=== PATIENT | male | born 1980 | race Caucasian/White ===

== ENCOUNTER 2021-11-14 20:42 | Emergency (ER) | payer MEDICAID ==
[~2021-11-14] VITALS: Ht 180.3 cm; Wt 115.7 kg
[2021-11-14 20:55] VITALS: BP_SYST 119
[2021-11-14] MEDS ORDERED: PANTOPRAZOLE SODIUM 40 MG/VIAL (PROTONIX) IVP ONE (21:45)
[2021-11-14] MEDS ORDERED: ONDANSETRON HCL 4 MG/2 ML VIAL IVP ONE (21:45)
[2021-11-14] MEDS ORDERED: NACL 0.9% 1,000 ML IV ONE (21:45)
[2021-11-14 22:50] LABS: BASOPHILS # (AUTO) 0.1 K/uL (0.0-0.2); BASOPHILS % (AUTO) 0.6 % (0.0-2.0); EOSINOPHILS % (AUTO) 0.5 % (0.0-4.0); HEMOGLOBIN 9.7 g/dL (14.0-18.0); LYMPHOCYTES # (AUTO) 1.9 K/uL (1.0-5.5); LYMPHOCYTES % (AUTO) 21.2 % (20.5-51.5); MEAN CORPUSCULAR HEMOGLOBIN 21 pg (27-31); MEAN CORPUSCULAR HGB CONC 30 % (32-36); MEAN CORPUSCULAR VOLUME 69 fL (79.0-98.0); MONOCYTES # (AUTO) 0.6 K/uL (0.0-1.0); MONOCYTES % (AUTO) 6.8 % (1.7-9.3); NEUTROPHILS # (AUTO) 6.4 K/uL (1.8-7.7); NEUTROPHILS % (AUTO) 70.9 % (40.0-70.0); PLATELET COUNT (AUTO) 429 K/uL (130-430); RED BLOOD CELL COUNT(AUTO) 4.62 MIL/uL (4.2-6.2); RED CELL DISTRIBUTION WIDTH 19.5 % (9.0-15.0); WHITE BLOOD COUNT (AUTO) 9.1 K/uL (4.8-10.8)
[2021-11-14 23:08] LABS: CREATININE 1.25 mg/dL (0.55-1.30); POTASSIUM 3.8 mmol/L (3.5-5.1)
[2021-11-14 23:15] LABS: ALBUMIN 3.8 g/dL (3.4-4.8); TOTAL BILIRUBIN 0.5 mg/dL (0.0-1.0)
[2021-11-15] MEDS ORDERED: ONDA-8 TL (00:43)
[2021-11-15 01:04] VITALS: BP_SYST 137
== END 2021-11-15 01:04 | disposition home or self-care (01) ==
LOC: SED 20:42
DX: R11.10 Vomiting, unspecified (principal); R42 Dizziness and giddiness; F12.90 Cannabis use, unspecified, uncomplicated; Z88.8 Allergy status to other drugs, medicaments and biological substances
CPT/HCPCS: 36415; 80053; 83690; 85025; 96361; 96374; 96375; 99285; C9113; J2405; J7030

== ENCOUNTER 2021-12-12 05:46 | Inpatient (IN) | payer MEDICAID, SELFPAY ==
[~2021-12-12] VITALS: Ht 180.3 cm; Wt 108.9 kg
[~2021-12-12 05:46] MED LIST: ONDA-8 TL
[2021-12-12 06:01] VITALS: BP_SYST 136
[2021-12-12] MEDS ORDERED: NACL 0.9% 1,000 ML IV ONE (06:45)
[2021-12-12] MEDS ORDERED: MORPHINE 4 MG INJ. 4 MG/ML VIAL IVP ONE (06:45)
[2021-12-12] MEDS ORDERED: DIPHENHYDRAMINE INJ 50 MG/ML VIAL IVP ONE (06:45)
[2021-12-12 07:05] LABS: BILIRUBIN,URINE NEGATIVE (NEGATIVE); BLOOD, URINE NEGATIVE (NEGATIVE); CLARITY/URINE CLEAR (CLEAR); COLOR,URINE YELLOW (YELLOW); GLUCOSE,URINE NEGATIVE (NEGATIVE); KETONES,URINE NEGATIVE (NEGATIVE); LEUKOCYTE ESTERASE ,URINE NEGATIVE (NEGATIVE); NITRITE, URINE NEGATIVE (NEGATIVE); PH,URINE 8.5 (5.0-8.0); PROTEIN URINE TRACE (NEGATIVE); UROBILINOGEN,URINE 0.2 (0.2-1.0)
[2021-12-12 07:17] LABS: BASOPHILS # (AUTO) 0.1 K/uL (0.0-0.2); BASOPHILS % (AUTO) 0.7 % (0.0-2.0); EOSINOPHILS # (AUTO) 0.1 K/uL (0.0-0.4); EOSINOPHILS % (AUTO) 1.2 % (0.0-4.0); HEMATOCRIT 30.8 % (36-54); HEMOGLOBIN 9.4 g/dL (14.0-18.0); LYMPHOCYTES # (AUTO) 4.4 K/uL (1.0-5.5); LYMPHOCYTES % (AUTO) 41.6 % (20.5-51.5); MEAN CORPUSCULAR HEMOGLOBIN 21 pg (27-31); MEAN CORPUSCULAR HGB CONC 30 % (32-36); MEAN CORPUSCULAR VOLUME 69 fL (79.0-98.0); MONOCYTES # (AUTO) 0.4 K/uL (0.0-1.0); MONOCYTES % (AUTO) 3.6 % (1.7-9.3); NEUTROPHILS # (AUTO) 5.6 K/uL (1.8-7.7); NEUTROPHILS % (AUTO) 52.9 % (40.0-70.0); PLATELET COUNT (AUTO) 512 K/uL (130-430); RED BLOOD CELL COUNT(AUTO) 4.45 MIL/uL (4.2-6.2); RED CELL DISTRIBUTION WIDTH 20.5 % (9.0-15.0); WHITE BLOOD COUNT (AUTO) 10.6 K/uL (4.8-10.8)
[2021-12-12 07:51] LABS: CALCIUM 8.4 mg/dL (8.4-11.0); CREATININE 1.4 mg/dL (0.55-1.30); POTASSIUM 3.7 mmol/L (3.5-5.1)
[2021-12-12 07:56] LABS: ALBUMIN 3.6 g/dL (3.4-4.8); TOTAL BILIRUBIN 0.3 mg/dL (0.0-1.0)
[2021-12-12] MEDS ORDERED: fentaNYL CITRATE/PF 100 MCG/2 ML AMP IVP ONE (09:00)
[2021-12-12 11:38] LABS: BARBITURATE, URINE NEGATIVE (NEG <=200); BENZODIAZEPINE, URINE NEGATIVE (NEG <=150); METHAMPHETAMINES SCREEN,URINE NEGATIVE (NEG <=500); URINE AMPHETAMINE NEGATIVE (NEG <=500); URINE METHADONE NEGATIVE (NEG <=200)
[2021-12-12 11:39] LABS: CANNABINOID, URINE POSITIVE (NEG <=50); COCAINE, URINE POSITIVE (NEG <=150); OPIATE, URINE POSITIVE (NEG <=100); PHENCYCLIDINE SCREEN,URINE NEGATIVE (NEG <=25); UR TRICYCLIC ANTIDEPRESSANTS NEGATIVE (NEG <=300); URINE OXYCODONE SCREEN NEGATIVE (NEG <=100); URINE PROPOXYPHENE SCREEN NEGATIVE (NEG <=300)
[2021-12-12 12:55] VITALS: BP_SYST 136
[2021-12-12] MEDS ORDERED: NALOXONE HCL 0.4 MG/ML AMP (NARCAN) IVP PRN ×3 (13:15→14:15)
[2021-12-12] MEDS ORDERED: HYDROmorphone 1 MG/ML INJ. CARTRIDGE IVP ONE (13:15)
[2021-12-12 13:44] VITALS: BP_SYST 136
[2021-12-12] MEDS ORDERED: MILK OF MAGNESIA 30 ML UDC PO PRN (14:00)
[2021-12-12] MEDS ORDERED: FOLIC ACID 1 MG, THIAMINE HCL 100 MG, MAGNESIUM SULFATE 1 GM, MVI 10 ML in NACL 0.9% 1,... IV SCH (14:00)
[2021-12-12] MEDS ORDERED: MAG-AL HYDROX/SIMETH 30 ML UDC PO ONE (14:00)
[2021-12-12] MEDS ORDERED: MAG-AL HYDROX/SIMETH 30 ML UDC PO PRN (14:00)
[2021-12-12] MEDS ORDERED: MILK OF MAGNESIA 30 ML UDC PO ONE (14:00)
[2021-12-12] MEDS ORDERED: ACETAMINOPHEN 325 MG TABLET PO PRN (14:15)
[2021-12-12] MEDS ORDERED: FAMOTIDINE 20 MG TABLET PO ONE (14:15)
[2021-12-12] MEDS ORDERED: HYDROmorphone 1 MG/ML INJ. CARTRIDGE IVP PRN (14:15)
[2021-12-12] MEDS ORDERED: BISACODYL 5 MG TABLET.DR (DULCOLAX) PO ONE (14:15)
[2021-12-12] MEDS ORDERED: chlordiazePOXIDE HCL 25 MG CAPSULE PO ONE (14:30)
[2021-12-12] MEDS ORDERED: LORazepam 2 MG/ML VIAL IVP PRN (14:30)
[2021-12-12] MEDS ORDERED: LACTOBACILLUS RHAMNOSUS GG 1 CAP CAPSULE PO ONE (14:45)
[2021-12-12] MEDS ORDERED: PIPERACILLIN/TAZO 3.375/DEX-IS 50 ML IV ONE (16:00)
[2021-12-12] MEDS: THIAMINE HCL 100 MG, MAGNESIUM SULFATE 1 GM in NS 100 ML IV SCH (16:43)
[2021-12-12] MEDS: LACTOBACILLUS RHAMNOSUS GG 1 CAP CAPSULE PO SCH ×2 (16:45→21:59)
[2021-12-12] MEDS: FOLIC ACID 1 MG, MVI 10 ML in NACL 0.9% 1,000 ML IV SCH (16:47)
[2021-12-12 17:47] VITALS: BP_SYST 132
[2021-12-12] MEDS: HYDROmorphone 1 MG/ML INJ. CARTRIDGE IVP PRN ×2 (19:29→23:52)
[2021-12-12] MEDS ORDERED: chlordiazePOXIDE HCL 25 MG CAPSULE PO SCH (21:00)
[2021-12-12] MEDS: FAMOTIDINE PF 20 MG/2 ML VIAL IVP SCH (22:00)
[2021-12-12 23:35] VITALS: BP_SYST 133
[2021-12-12] MEDS: PIPERACILLIN/TAZO 3.375/DEX-IS 50 ML IV SCH (23:53)
[2021-12-13 03:15] VITALS: BP_SYST 134
[2021-12-13] MEDS: HYDROmorphone 1 MG/ML INJ. CARTRIDGE IVP PRN ×5 (05:45→23:46)
[2021-12-13] MEDS: PIPERACILLIN/TAZO 3.375/DEX-IS 50 ML IV SCH ×4 (05:52→23:47)
[2021-12-13 07:14] LABS: ALBUMIN 2.8 g/dL (3.4-4.8); CALCIUM 8.3 mg/dL (8.4-11.0); CREATININE 1.26 mg/dL (0.55-1.30); POTASSIUM 3.9 mmol/L (3.5-5.1); TOTAL BILIRUBIN 0.4 mg/dL (0.0-1.0)
[2021-12-13 07:29] LABS: HEMATOCRIT 28.4 % (36-54); HEMOGLOBIN 8.5 g/dL (14.0-18.0); MEAN CORPUSCULAR HEMOGLOBIN 21 pg (27-31); MEAN CORPUSCULAR HGB CONC 30 % (32-36); MEAN CORPUSCULAR VOLUME 70 fL (79.0-98.0); PLATELET COUNT (AUTO) 472 K/uL (130-430); RED BLOOD CELL COUNT(AUTO) 4.09 MIL/uL (4.2-6.2); RED CELL DISTRIBUTION WIDTH 20.4 % (9.0-15.0)
[2021-12-13] MEDS ORDERED: OLANZapine 5 MG TABLET PO PRN (07:45)
[2021-12-13 08:00] VITALS: BP_SYST 111
[2021-12-13] MEDS ORDERED: THIAMINE HCL 100 MG TABLET PO SCH (09:00)
[2021-12-13] MEDS ORDERED: FOLIC ACID 1 MG TABLET PO SCH (09:00)
[2021-12-13] MEDS: FAMOTIDINE PF 20 MG/2 ML VIAL IVP SCH ×2 (09:22→20:57)
[2021-12-13] MEDS: LACTOBACILLUS RHAMNOSUS GG 1 CAP CAPSULE PO SCH ×2 (09:22→20:56)
[2021-12-13 09:29] LABS: BASOPHILS % (MANUAL) 0 % (0-2); EOSINOPHILS % (MANUAL) 6 % (0-7); LYMPHOCYTES % (MANUAL) 26 % (20-46); MONOCYTES % (MANUAL) 8 % (0-11)
[2021-12-13 12:42] VITALS: BP_SYST 117
[2021-12-13 14:21] LABS: TOTAL IRON BIND. CAPACITY 454 ug/dL (250-450)
[2021-12-13] MEDS: THIAMINE HCL 100 MG, MAGNESIUM SULFATE 1 GM in NS 100 ML IV SCH (14:30)
[2021-12-13] MEDS: FOLIC ACID 1 MG, MVI 10 ML in NACL 0.9% 1,000 ML IV SCH (14:30)
[2021-12-13] MEDS ORDERED: BISACODYL 5 MG TABLET.DR (DULCOLAX) PO ONE (17:00)
[2021-12-13] MEDS ORDERED: GOLYTELY / COLYTE SOLUTION 4 LITERS PO ONE (18:00)
[2021-12-13] MEDS: SOD FERRIC GLUC COMPLEX/SUC 125 MG in NS 100 ML IV SCH (18:45)
[2021-12-13 20:01] VITALS: BP_SYST 129
[2021-12-13] MEDS: MULTIVITS,CA,MINERALS/IRON/FA 1 TABLET PO SCH (20:57)
[2021-12-14 00:37] VITALS: BP_SYST 115
[2021-12-14] MEDS: HYDROmorphone 1 MG/ML INJ. CARTRIDGE IVP PRN ×4 (04:09→21:02)
[2021-12-14] MEDS: PIPERACILLIN/TAZO 3.375/DEX-IS 50 ML IV SCH ×3 (06:04→17:49)
[2021-12-14 07:30] LABS: CALCIUM 8.2 mg/dL (8.4-11.0); CREATININE 1.25 mg/dL (0.55-1.30); POTASSIUM 3.8 mmol/L (3.5-5.1)
[2021-12-14 07:39] LABS: PROTHROMBIN TIME 10.4 SECS (9.5-12.5)
[2021-12-14 08:15] VITALS: BP_SYST 114
[2021-12-14 08:44] LABS: HEMATOCRIT 27.1 % (36-54); HEMOGLOBIN 8.1 g/dL (14.0-18.0); MEAN CORPUSCULAR HEMOGLOBIN 21 pg (27-31); MEAN CORPUSCULAR HGB CONC 30 % (32-36); MEAN CORPUSCULAR VOLUME 70 fL (79.0-98.0); PLATELET COUNT (AUTO) 480 K/uL (130-430); RED CELL DISTRIBUTION WIDTH 20.2 % (9.0-15.0); WHITE BLOOD COUNT (AUTO) 6.7 K/uL (4.8-10.8)
[2021-12-14] MEDS: FAMOTIDINE PF 20 MG/2 ML VIAL IVP SCH ×2 (09:39→21:00)
[2021-12-14] MEDS: fentaNYL CITRATE/PF 100 MCG/2 ML AMP ONE ×2 (11:01→11:07)
[2021-12-14] MEDS: MIDAZOLAM HCL 5 MG/5 ML VIAL ONE ×7 (11:01→11:14)
[2021-12-14 11:51] LABS: BASOPHILS % (MANUAL) 0 % (0-2); EOSINOPHILS % (MANUAL) 2 % (0-7); LYMPHOCYTES % (MANUAL) 30 % (20-46); MONOCYTES % (MANUAL) 12 % (0-11)
[2021-12-14 12:04] VITALS: BP_SYST 123
[2021-12-14] MEDS: MULTIVITS,CA,MINERALS/IRON/FA 1 TABLET PO SCH ×2 (13:15→21:00)
[2021-12-14] MEDS: LACTOBACILLUS RHAMNOSUS GG 1 CAP CAPSULE PO SCH ×2 (13:15→21:00)
[2021-12-14] MEDS: THIAMINE HCL 100 MG, MAGNESIUM SULFATE 1 GM in NS 100 ML IV SCH (14:54)
[2021-12-14] MEDS: FOLIC ACID 1 MG, MVI 10 ML in NACL 0.9% 1,000 ML IV SCH (14:55)
[2021-12-14 17:42] VITALS: BP_SYST 122
[2021-12-14] MEDS: SOD FERRIC GLUC COMPLEX/SUC 125 MG in NS 100 ML IV SCH (17:48)
[2021-12-15] MEDS: PIPERACILLIN/TAZO 3.375/DEX-IS 50 ML IV SCH ×4 (00:22→18:04)
[2021-12-15 01:12] VITALS: BP_SYST 138
[2021-12-15] MEDS: HYDROmorphone 1 MG/ML INJ. CARTRIDGE IVP PRN ×4 (01:35→14:45)
[2021-12-15 07:15] LABS: BASOPHILS # (AUTO) 0.1 K/uL (0.0-0.2); BASOPHILS % (AUTO) 0.6 % (0.0-2.0); EOSINOPHILS # (AUTO) 0.1 K/uL (0.0-0.4); EOSINOPHILS % (AUTO) 1.2 % (0.0-4.0); HEMATOCRIT 29.3 % (36-54); LYMPHOCYTES # (AUTO) 3.4 K/uL (1.0-5.5); LYMPHOCYTES % (AUTO) 27.9 % (20.5-51.5); MEAN CORPUSCULAR HEMOGLOBIN 21 pg (27-31); MEAN CORPUSCULAR HGB CONC 31 % (32-36); MEAN CORPUSCULAR VOLUME 69 fL (79.0-98.0); MONOCYTES # (AUTO) 0.6 K/uL (0.0-1.0); MONOCYTES % (AUTO) 5.3 % (1.7-9.3); NEUTROPHILS # (AUTO) 7.9 K/uL (1.8-7.7); PLATELET COUNT (AUTO) 524 K/uL (130-430); RED BLOOD CELL COUNT(AUTO) 4.26 MIL/uL (4.2-6.2); RED CELL DISTRIBUTION WIDTH 20.1 % (9.0-15.0); WHITE BLOOD COUNT (AUTO) 12.1 K/uL (4.8-10.8)
[2021-12-15 07:56] LABS: ALBUMIN 3.1 g/dL (3.4-4.8); CALCIUM 8.7 mg/dL (8.4-11.0); CREATININE 1.31 mg/dL (0.55-1.30); POTASSIUM 3.9 mmol/L (3.5-5.1); TOTAL BILIRUBIN 0.2 mg/dL (0.0-1.0)
[2021-12-15 08:00] VITALS: BP_SYST 128
[2021-12-15] MEDS: MULTIVITS,CA,MINERALS/IRON/FA 1 TABLET PO SCH (09:17)
[2021-12-15] MEDS: LACTOBACILLUS RHAMNOSUS GG 1 CAP CAPSULE PO SCH (09:17)
[2021-12-15] MEDS: FAMOTIDINE PF 20 MG/2 ML VIAL IVP SCH (09:17)
[2021-12-15] MEDS: MORPHINE 4 MG INJ. 4 MG/ML VIAL IVP PRN ×2 (09:20→18:01)
[2021-12-15] MEDS ORDERED: DICYCLOMINE HCL 10 MG CAPSULE PO ONE (10:00)
[2021-12-15] MEDS ORDERED: FOLI-43 PO (10:10)
[2021-12-15] MEDS ORDERED: MULT-1145 PO (10:10)
[2021-12-15] MEDS ORDERED: THIA100T73 PO (10:10)
[2021-12-15] MEDS ORDERED: PEPI20 IVP (10:10)
[2021-12-15] MEDS ORDERED: FOLIC ACID 1 MG, THIAMINE HCL 100 MG, MAGNESIUM SULFATE 1 GM, MVI 10 ML in NACL 0.9% 1,... IV SCH (10:15)
[2021-12-15 12:46] VITALS: BP_SYST 129
[2021-12-15] MEDS: THIAMINE HCL 100 MG, MAGNESIUM SULFATE 1 GM in NS 100 ML IV SCH (14:48)
[2021-12-15] MEDS: FOLIC ACID 1 MG, MVI 10 ML in NACL 0.9% 1,000 ML IV SCH (14:48)
[2021-12-15 16:40] VITALS: BP_SYST 127
[2021-12-15] MEDS: SOD FERRIC GLUC COMPLEX/SUC 125 MG in NS 100 ML IV SCH (16:41)
[2021-12-15 19:14] VITALS: BP_SYST 132
[2021-12-15 19:14] LABS: HEMATOCRIT 29.5 % (36-54); HEMOGLOBIN 8.9 g/dL (14.0-18.0); MEAN CORPUSCULAR HEMOGLOBIN 21 pg (27-31); MEAN CORPUSCULAR HGB CONC 30 % (32-36); MEAN CORPUSCULAR VOLUME 69 fL (79.0-98.0); PLATELET COUNT (AUTO) 526 K/uL (130-430); RED BLOOD CELL COUNT(AUTO) 4.25 MIL/uL (4.2-6.2); RED CELL DISTRIBUTION WIDTH 20.2 % (9.0-15.0); WHITE BLOOD COUNT (AUTO) 13.6 K/uL (4.8-10.8)
[2021-12-15 19:21] LABS: BAND % (MANUAL) 0 % (0-6); BASOPHILS % (MANUAL) 0 % (0-2); EOSINOPHILS % (MANUAL) 0 % (0-7); LYMPHOCYTES % (MANUAL) 20 % (20-46); MONOCYTES % (MANUAL) 6 % (0-11)
[2021-12-15 19:28] LABS: CREATININE 1.18 mg/dL (0.55-1.30); POTASSIUM 3.9 mmol/L (3.5-5.1)
[2021-12-15] MEDS ORDERED: DICYCLOMINE HCL 10 MG CAPSULE PO SCH (21:00)
[2021-12-16] MEDS ORDERED: HYDR-3921 PO (01:04)
[2021-12-16] MEDS ORDERED: CEPH-548 PO (01:04)
[2021-12-16] MEDS ORDERED: DICL100G33 TP (01:04)
== END 2021-12-15 20:14 | disposition home or self-care (01) | DRG 254 ==
LOC: SED 05:46 → SMU 11:51 → STU 12:45 → SMU 12-14 16:08
PROVIDERS: ADMIT Internal Medicine; ATTEND Internal Medicine
PROC: 0DBE8ZX Excision of Large Intestine, Via Natural or Artificial Opening Endoscopic, Diagnostic (ICD-10-PCS; principal; 2021-12-14 11:12)
DX: K64.8 Other hemorrhoids (principal); N17.0 Acute kidney failure with tubular necrosis; D63.8 Anemia in other chronic diseases classified elsewhere; F12.10 Cannabis abuse, uncomplicated; F14.10 Cocaine abuse, uncomplicated; D50.9 Iron deficiency anemia, unspecified; K52.9 Noninfective gastroenteritis and colitis, unspecified; Z20.822 Contact with and (suspected) exposure to COVID-19; Z88.8 Allergy status to other drugs, medicaments and biological substances; Z79.899 Other long term (current) drug therapy; Z90.81 Acquired absence of spleen
CPT/HCPCS: 36415; 45380; 76376; 80048; 80053; 80307; 81003; 83540; 83550; 83690; 85007; 85025; 85027; 85610-TC; 85730-TC; 88305; 96374; 96375; 99285; G0378; J1170; J1200; J2250; J2270; J2543; J2916; J3010; J3411; J3475; J3490; J7030

== ENCOUNTER 2021-12-15 23:41 | Emergency (ER) | payer MEDICAID, SELFPAY ==
[~2021-12-15] VITALS: Ht 180.3 cm; Wt 108.9 kg
[~2021-12-15 23:41] MED LIST changes: +FOLI-43 PO; +MULT-1145 PO; +PEPI20 IVP; +THIA100T73 PO
[2021-12-15 23:50] VITALS: BP_SYST 135
--- NOTE | 2021-12-15 23:50 | NUR ---
Patient to ER bed to gown for evaluation. Side rails up. Report given to Oz ALONZO.
--- NOTE | 2021-12-15 23:53 | NUR ---
41 YR OLD AOX4 AMBULATORY MALE WITH COMPLAINT OF RIGHT ANTICUBITAL ARM PAIN STATUS POST IV REMOVAL AFTER RECENT HOSPITALIZATION. PT REPORTS RECENT ADMISSION FOR 4 DAYS FOR CHOLECYSTITIS WITH INITIATION OF MULTIPLE IV INSERTIONS. PT REPORTS PIAN 10/10 AND TENDER TO TOUCH UPON PALPATION. PT REPORTS USING A WARM COMPRESS ON SITE WITH NO RELIEF. MD AT THE BEDSIDE. WILL MONITOR NEEDED.
[2021-12-16 00:07] VITALS: BP_SYST 135
[2021-12-16] MEDS ORDERED: HYDROcodone/ACETAMIN 7.5-325 MG TAB PO ONE (00:15)
--- NOTE | 2021-12-16 00:49 | NUR ---
MD DISCUSSED WITH PT PROCEDURE TO VIEW VIENS AROUND THE SITE. MD AT THE BEDSIDE WITH ULTRASOUND FOR ASSESSMENT OF PT'S VEINS. PT TOLERATED WELL. MD APPLIED COBAND FOR COMFORT.
[2021-12-16] MEDS ORDERED: CEPH-548 PO (01:04)
[2021-12-16] MEDS ORDERED: DICL100G33 TP (01:04)
[2021-12-16] MEDS ORDERED: HYDR-3921 PO (01:04)
--- NOTE | 2021-12-16 01:14 | NUR ---
PT PROVIDED WITH M[employer] BANDAGE FOR HOME USE AND RIGHT ARM SITE MARKED WITH SKIN MARKER TO NOTE SIZE OF INFLAMMATION. PT NOTIFED OF DISCHARGE, PT PROVIDED WITH [facility] INSTRUCTIONS AND PRESCRIPTIONS. PT ENCOURAGED TO RETURN TO THE ED FOR INCREASE OF REDNESS OF SITE OR SWELLING. PT ENCOURAGED TO FOLLOW UP WITH PRIMARY CARE PROVIDER WITHIN 3 DAYS. PT VERBALIZED UNDERSTANDING. PT DISCHARGED INSTABLE CONDITION WITH ALL BELONGINGS.
== END 2021-12-16 01:21 | disposition home or self-care (01) ==
LOC: SED 23:41
DX: I80.8 Phlebitis and thrombophlebitis of other sites (principal); L03.113 Cellulitis of right upper limb; F17.200 Nicotine dependence, unspecified, uncomplicated; Z79.899 Other long term (current) drug therapy; Z88.8 Allergy status to other drugs, medicaments and biological substances
CPT/HCPCS: 99284